=== PATIENT | female | born 1985 | race Caucasian/White ===

== ENCOUNTER 2018-08-08 17:10 | Emergency (ER) | payer MEDICAID ==
[2018-08-08] MEDS: DEXAMETHASONE 10 MG/ML 1 ML INJ IM (17:51)
[2018-08-08] MEDS: KETOROLAC 60 MG INJ IM (17:52)
== END 2018-08-08 18:56 | disposition home or self-care (01) ==
LOC: FTE 18:56
DX: J30.9 Allergic rhinitis, unspecified (principal); J01.10 Acute frontal sinusitis, unspecified
CPT/HCPCS: 96372; 99284-25